=== PATIENT | female | born 1985 | race Caucasian/White ===

== ENCOUNTER → 2016-06-09 | Outpatient (CLI) | payer BC ==
--- NOTE | 2016-06-09 12:46 | XR ---
Abdomen HISTORY: Calculus of kidney Correlation to prior CT abdomen pelvis 18 July 2014 Frontal view of the abdomen submitted on 2 images The lung bases are clear. There is no bowel obstruction or pneumoperitoneum. The punctate nonobstruct yomaira calcification seen within the kidneys on prior exam not seen well possibly due to superimposed antonio wel gas. Bone mineralization is maintained. IMPRESSION: Nonobstructive bowel gas pattern. Possible limitations as described.
== END ==
LOC: RADXRMAIN 09:49
PROVIDERS: ATTEND Urology
DX: N20.0 Calculus of kidney (principal)
CPT/HCPCS: 74000